=== PATIENT | male | born 1955 | race Caucasian/White ===

== ENCOUNTER → 2020-12-29 11:21 | Outpatient (BNVA) | payer OTHER, SELFPAY | PROVIDERS: PCP Family Medicine; Referring Provider Family Medicine; Visit Provider Physical Therapy Assistant | DX: Z12.11 Encounter for screening for malignant neoplasm of colon (principal); Z80.0 Family history of malignant neoplasm of digestive organs; Z86.010 Personal history of colon polyps ==

== ENCOUNTER 2020-12-30 01:57 | Outpatient (CLI) | payer MEDICARE, OTHER, SELFPAY ==
[2020-12-30 11:33] LABS: Source Nasal/Nares
[2020-12-30 19:12] LABS: COVID-19 PCR Negative (Negative)
== END 2020-12-30 01:58 | disposition home or self-care (01) ==
LOC: LBO 01:57
PROVIDERS: PCP Family Medicine; Visit Provider Surgery
DX: Z20.822 Contact with and (suspected) exposure to COVID-19 (principal)
CPT/HCPCS: 87635

== ENCOUNTER 2021-01-02 08:58 | Day surgery (SDC) | payer MEDICARE, OTHER, SELFPAY ==
[2021-01-02] MEDS: Lactated Ringers 1,000 ML 80 ML IV (09:36)
--- NOTE | 2021-01-02 10:38 | W.ANESPRE ---
General Info Date of Service Date Performed: 01/02/21 Height: 6 ft 2 in Weight: 97.692 kg Body Mass Index (BMI): 27.6 Surgical Procedure: Operation Date: 01/02/21 10:50 Proposed Procedures Side Surgeon p Colonoscopy Franca Wood MD Meds Allergies and Home Medications Allergies Allergy/AdvReac Type Severity Reaction Status Date / Time simvastatin AdvReac Intermediate muscle Unverified 01/02/21 09:12 aches Home Medication Medication Instructions Recorded triamcinolone acetonide 0.1 % 1 applic TOPICAL DAILY 08/26/20 topical cream aspirin 81 mg tablet,delayed 81 mg PO DAILY 12/29/20 release bisacodyl 5 mg tablet,delayed 5 mg PO ONCE #4 tab 12/29/20 release polyethylene glycol 3350 17 238 g PO ONCE #238 g 12/29/20 gram/dose oral powder Current Visit Medications: Current Medications Generic Name Dose Route Start Last Admin Trade Name Freq PRN Reason Stop Dose Admin Hyoscyamine Sulfate 0.125 mg 01/02/21 06:56 Hyoscyamine 0.125 Mg Sl/Oral/Chew SL DIRECTED PRN Ringer's Solution 1,000 mls @ 80 mls/hr 01/02/21 06:00 01/02/21 09:36 IV 01/29/21 23:59 80 mls/hr INFUSION STEVIE Administration IV Miscellaneous Supplies 1 each 01/02/21 06:00 Iv Access IV 01/29/21 23:59 DIRECTED STEVIE Ondansetron HCl 4 mg 01/02/21 06:56 Ondansetron 4 Mg/2 Ml Vial IVP Q4H PRN PRN Nausea / Vomiting Sodium Chloride 0 ml 01/02/21 06:00 Normal Saline Flush 10 Ml Syr IV 01/29/21 23:59 PRN PRN Sodium Chloride 0 ml 01/02/21 06:00 Normal Saline 10 Ml Vial IJ 01/29/21 23:59 DIRECTED PRN Sterile Water 0 ml 01/02/21 06:00 Water,Injection,Sterile 10 Ml Vial IJ 01/29/21 23:59 DIRECTED PRN PFSH Active Problems Active Problems: Problem Status Onset Code Screening for colon cancer Z12.11 Plantar fasciitis M72.2 Phlebitis and thrombophlebitis of lower extremities I80.3 Eczema L30.9 Family history of colon cancer Z80.0 Screening for colon cancer Z12.11 Medical History Medical History (Updated 01/02/21 @ 09:32 by Myla Kumar) Family history of colon cancer in mother Macular degeneration Osteoarthritis of right hip Screening for colon cancer Sensorineural hearing loss Thrombophlebitis Surgical History Surgical History Colonoscopy - MAC (06/10/17) 2009 2016 - 4 polyps TA History of arthroscopic knee surgery History of cataract surgery History of hernia repair Tobacco Smoking/Tobacco Use Status: Never Alcohol Alcohol Intake: current Alcohol intake frequency: a few times a week Alcohol type: beer Substance Use Substance use: Never Substance use type: does not use Vital Signs and Lab Results Vital Signs Most Recent Vital Signs in EMR: Temp Pulse Resp BP Pulse Ox 36.1 C L 67 16 117/79 99 01/02/21 10:40 01/02/21 10:40 01/02/21 10:40 01/02/21 10:40 01/02/21 10:40 Lab Results Blood Type / Crossmatch: No Data to Display Complete Blood Count: No Data to Display Complete Metabolic Panel: No Data to Display Liver Function Panel: No Data to Display Coagulation Panel: No Data to Display Cardiac Panel: No Data to Display Arterial Blood Gas: No Data to Display Venous Blood Gas: No Data to Display Pancreas Panel: No Data to Display Thyroid Panel: No Data to Display Infectious Disease: Coronavirus (COVID-19)(PCR) Negative (Negative) 12/30/20 09:32 12/30/20 Coronavirus 2019 Source Nasal/Nares 12/30/20 09:32 12/30/20 Blood Cultures: No Data to Display Toxicology Panel: No Data to Display Anesthesia Assessment and Plan Anesthesia History Personal History: No History of Anesthesia Complications Family History: No Family History of Anesthesia Complications Exercise Tolerance Exercise Tolerance: Metabolic Equivalents>4 Pertinent Negatives Pertinent Negatives: No Symptoms of GERD, No Major Cardiovascular Symptoms or Complaints and No Major Pulmonary Symptoms or Complaints Cardiac & Pulmonary Exam Cardiac Exam: Normal S1/S2 Heart Sounds Pulmonary Exam: Clear Bilateral Breath Sounds Airway Exam Known Difficult Airway: No Mallampati Class: 2 Mouth Opening: Normal (> 3cm) Thyromental Distance: Greater than 3 cm Neck Range of Motion: Full ROM Neck Circumference: Normal Teeth Condition: Normal Dentition ASA Classification ASA Score: ASA 2 Emergency Case?: No NPO Status NPO Status: NPO Clears >2 hours, Solids >8 hours Anesthesia Plan Resuscitation Status: Full Code Anesthesia Technique: General Anesthesia Airway Planned: Natural Airway Monitors Used: Standard Monitors
[2021-01-02 10:40] VITALS: BP 117/79; PULSE 67; RESP 16; TEMP 36.1; O2SAT 99
[2021-01-02 10:47] VITALS: BMI 27.6
--- NOTE | 2021-01-02 11:15 | BOWEL_PTH ---
PATIENT: Wayne Oquendo LOC: [facility] U#:[id number] AGE/SX: 65/M ROOM: RE01/02/[address]: Franca Wood MD : 1955 BED: DIS: 01/02/2021 SPEC #: [id number] RECD: 01/02/21 12:44 STATUS: SHASTA REFarzad #: [id number] MARTY: 01/02/21 11:[address]: Franca Wood DEPT: Surgical Specimen RECD BY: Zoe Mcneill ENTERED: 01/02/21 12:45 SP TYPE: Bowel OTHR DR: Nesha Lovelace Tissues: 1 - BIOPSY BOWEL 2 - BIOPSY BOWEL 3 - BIOPSY BOWEL Procedures: GROSS AND MICRO LEVEL 4 Comments: [id number]
[2021-01-02 11:37] VITALS: BP 121/82; BP 95/50; PULSE 61; PULSE 65; RESP 16; TEMP 36.6; O2SAT 96; O2SAT 97
--- NOTE | 2021-01-02 11:38 | W.COLOREPORT ---
Date of service: 01/02/21 Time of Service: 11:39 Colonoscopy Report Date of procedure: 01/02/21 Pre-op diagnosis general: Polyps and family history Post-op diagnosis procedure note: other (polyps and family history) Procedure: Colonoscopy with polypectomy Surgeon: Franca Wood Anesthesia Type: General:No Airway (ASA 2/ Enoc Mayes CRNA) Estimated blood loss (mL): 3 Pathology: other (ascending, descending and rectal polyp) Complications: None Disposition: same day Indications: The patient is here for Colonoscopy pre-op. His last screening was in 2018, which was remarkable for tubular adenomatous polyp. He reports a family history of colon cancer in his mother. He has not had any bowel habit changes. -Discussed colonoscopy bowel prep as well as the procedure. Discussed possible complications of the procedure to include bleeding, pain, perforation, missed small lesion/polyp, sore throat, aspiration and adverse reaction to the medications. Questions were answered to patient?s satisfaction. No guarantees were implied or given. Prep: Miralax/Dulcolax Procedure Start Time: 11:05 Procedure End Time: 11:28 Retraction Time: 15 minutes Findings: 3 small polyps Procedure Description: After informed consent was obtained the patient was taken to the procedure room and placed in a left decubitous position. Monitors were applied and a time out was done. The patients name, date of , procedure, allergies to medications and metal in their body was reviewed. The patient was then sedated. Once sedated and comfortable a rectal exam was done. External exam was normal. Internal exam revealed a normal sphincter tone and no palpable masses. The prostate felt smooth and slightly enlarged. The scope was then introduced and retro-flexed. No internal hemorrhoids, polyps or masses were identified on retro-flexion. The scope was then advanced to the cecum without difficulty. The ileocecal vlave and appendiceal orifice were identified. The prep was adequate. The scope was then slowly retracted over 15 minutes back into the rectum. Polyps were removed with cold forceps in the ascending, descending colon and rectum. There was no diverticulosis noted. The scope was removed and the patient was woken up and taken back to Same day surgery in stable condition. The patient tolerated the procedure well and there were no immediate complications. Follow up: The patient should follow up in 5 years unless they develop changes in bowel habits or other new gastrointestinal complaints.
--- NOTE | 2021-01-02 11:42 | W.PM.DSUDISC ---
Discharge Plan Disposition Patient Disposition: HOME Condition: Good Discharge Details Reason For Visit: Colonoscopy Attending Provider: Franca Wood Primary Care Provider: Nesha Lovelace Home Meds and New Rx's Prescriptions: Continued aspirin [Adult Aspirin Regimen] 81 mg tablet,delayed release (DR/EC) 81 mg PO DAILY RF: 0 triamcinolone acetonide 0.1 % cream 1 applic topical DAILY RF: 0 Discontinued bisacodyl [Dulcolax (bisacodyl)] 5 mg tablet,delayed release (DR/EC) 5 mg PO ONCE Qty: 4 RF: 0 polyethylene glycol 3350 17 gram/dose powder 238 g PO ONCE Qty: 238 RF: 0 Discharge Instructions Additional Instructions: Findings: 3 small polyps Follow up: 5 years Please call if you develop: fevers >101.5 Nausea or Vomiting Abdominal pain that is not transient Rectal bleeding that is more then a tbsp A hard abdomen and inability to pass gas DAY SURGERY UNIT POST ENDOSCOPY INSTRUCTIONS Instructions for everyone who is given Anesthesia: For your safety, please do the following for the next 24 Hours: a. Do not drive or operate dangerous equipment b. Do not drink alcohol beverages or use any recreational drugs for the first 24 hours or while taking pain medications. The medications in your body may have a reaction that can be dangerous. c. Do not make any important decisions or sign any important papers 1. Generally there are no restrictions on your activity after a day or so has gone by, but you may feel a bit fatigued for a few days. 2. After you arrive home you may have a light meal and return to a normal diet as you can tolerate it without feeling sick to your stomach. 3. After surgery, you may feel pain or discomfort. This should be only transient, but if it persists please contact your doctor. 4. If there are any questions regarding the findings of your procedure, please feel free to contact your doctor. 6. If you are unable to contact your doctor with a problem, contact the hospital at [phone]. 7. Continue all your regular medications unless directed otherwise. I understand the above instructions and have no questions. Signature of Patient or Responsible Adult Escort Date/Time Name of Responsible Adult Escort Signature of Nurse Date/Time Activity:: Activity as Tolerated Diet:: As Tolerated Discharge Orders Discharge Orders: Discharge Order (Routine); Ordered 01/02/21 Ordered By: Franca Wood
--- NOTE | 2021-01-02 11:57 | W.ANESPOSTOP ---
Postoperative Evaluation Date, Time and Location Date Performed: 01/02/21 Time Performed: 11:57 Patient Location: Day Surgery Unit Vital Signs Most Recent Imported Vital Signs: Most Recent Vital Signs Temp Pulse Resp BP Pulse Ox 36.6 C 65 16 95/50 L 96 01/02/21 11:37 01/02/21 11:37 01/02/21 11:37 01/02/21 11:37 01/02/21 11:37 Pain Score Most Recent Pain Score: Most Recent Pain Score Pain Level 0 01/02/21 11:37 Assessment Mental Status: Awake (Alert & Oriented to Patient Baseline) Airway and Respiratory Function: Patent airway with normal (patient baseline) respiratory exam Cardiovascular Function: Hemodynamically Stable Hydration Status: Adequately Hydrated Nausea & Vomiting: No Nausea or Vomiting Pain: Pt. Denies Any Pain Peripheral Nerve Block: Patient did not receive a nerve block
== END 2021-01-02 12:18 | disposition home or self-care (01) ==
PROVIDERS: PCP Family Medicine; Visit Provider Surgery
PROC: 0DJD8ZZ Inspection of Lower Intestinal Tract, Via Natural or Artificial Opening Endoscopic (ICD-10-PCS; CPT 45378; principal; 2021-01-02 10:45)
DX: Z12.11 Encounter for screening for malignant neoplasm of colon (principal); D12.2 Benign neoplasm of ascending colon; Z80.0 Family history of malignant neoplasm of digestive organs; Z86.010 Personal history of colon polyps; D12.4 Benign neoplasm of descending colon; K62.1 Rectal polyp
CPT/HCPCS: 45380; 88305

== ENCOUNTER → 2023-10-17 13:52 | Outpatient (BNVA) | payer MEDICARE, OTHER, SELFPAY | PROVIDERS: PCP Family Medicine; Referring Provider Family Medicine; Visit Provider Physical Therapy Assistant | DX: Z12.11 Encounter for screening for malignant neoplasm of colon (principal); Z86.010 Personal history of colon polyps; Z80.0 Family history of malignant neoplasm of digestive organs ==

== ENCOUNTER 2023-10-21 10:32 | Day surgery (SDC) | payer MEDICARE, OTHER, SELFPAY ==
--- NOTE | 2023-10-21 10:37 | W.COLOREPORT ---
Date of service: 10/21/23 Time of Service: 10:37 Colonoscopy Report Procedure Description: PROCEDURES PERFORMED: 1. Colonoscopy with cold forceps polypectomy PREOPERATIVE DIAGNOSIS: Surveillance colonoscopy, sessile serrated polyps, family history colon cancer POSTOPERATIVE DIAGNOSIS: Colon polyps, minimal sigmoid diverticulosis, grade 1 internal hemorrhoids SURGEON: Harrison Taylor MD INDICATION for procedure: The patient is a 68-year-old man who has a personal history of advanced colon polyps and has a family history of colon cancer in both of his parents as well as his paternal grandparents. This is a surveillance colonoscopy. The last 1 was 3 years ago. FINDINGS: The terminal ileum was normal. A small 2-3 mm polyp was found and removed in the sigmoid colon with cold forceps technique. No other polyps were noted. Some very mild diverticular changes are present in the sigmoid colon only - no active inflammation or fibrosis. Grade 1 internal hemorrhoids are noted. SURVEILLANCE interval/FOLLOW-UP: Because of the family history, no longer than 5 years. Should be 3 years if the polyp is advanced histology (unlikely). SPECIMENS: yes EBL: Minimal COMPLICATIONS: None QUALITY of prep: Excellent Procedure in detail: The patient gave written consent and was in agreement with the indications, the potential risks as well as the benefits of the procedure. They were taken to the endoscopy suite and laid in the left lateral decubitus position. A timeout was performed and anesthesia was administered which was tolerated well. I started the procedure. Digital rectal and visual examination was performed and grossly within normal limits. A well-lubricated flexible colonoscope was then introduced and passed without any notable difficulty all the way to the cecum identified by the ileocecal valve and the appendiceal orifice. The ileum was briefly intubated and looked normal. The scope was then slowly withdrawn with the above-noted findings. The patient tolerated the procedure well and was taken to the PACU in hemodynamically stable condition.
--- NOTE | 2023-10-21 10:38 | W.PM.DSUDISC ---
Date of service: 10/21/23 Time of Service: 10:38 Discharge Plan Disposition Patient Disposition: Home Condition: Good Discharge Details Attending Provider: Kofi Taylor Primary Care Provider: Nesha Lovelace Home Meds and New Rx's Prescriptions: No Action bisacodyl [Dulcolax (bisacodyl)] 5 mg tablet,delayed release (DR/EC) 5 mg PO ONCE Qty: 4 0RF Rx Instructions: Take per colonoscopy instructions provided by ordering providers office polyethylene glycol 3350 17 gram/dose powder 17 g PO ONCE Qty: 238 0RF Rx Instructions: Take per colonoscopy instructions provided by ordering providers office loratadine [Allergy Relief (loratadine)] 10 mg tablet 10 mg PO DAILY Discharge Instructions Additional Instructions: FINDINGS: A small polyp was found and removed today. This is why we keep doing the colonoscopies. It is nothing to worry about. Because your family history you need to repeat a colonoscopy in 3 to 5 years. We will update you once the polyp pathology results are available. You have very mild hemorrhoid and diverticular disease which are both very common, benign conditions and nothing needs to be done about them. Stand Alone Forms: Anesthesia Discharge Inst., Colonoscopy Post Instructions, Jeannie Escobedo (DSU) Activity:: Activity as Tolerated Diet:: As Tolerated
[2023-10-21] MEDS: Lactated Ringers 1,000 ML 80 ML IV (10:40)
[2023-10-21 10:44] VITALS: BP 146/97; PULSE 59; RESP 16; TEMP 36.2; O2SAT 100
--- NOTE | 2023-10-21 11:05 | ANES.PREOP_ITS ---
General Info Date of Service Date Performed: 10/21/23 Height: 6 ft 2 in Weight: 96.9 kg Body Mass Index (BMI): 27.4 Surgical Procedure: Operation Date: 10/21/23 11:50 Proposed Procedure Side Surgeon p Colonoscopy Kofi Taylor MD Meds Allergies and Home Medications Allergies Allergy/AdvReac Type Severity Reaction Status Date / Time simvastatin AdvReac Intermediate muscle Verified 10/21/23 10:47 aches seasonal allergies Allergy Mild stuffy nose Uncoded 10/21/23 10:47 Home Medication Medication Instructions Recorded bisacodyl 5 mg tablet,delayed 5 mg PO ONCE #4 tabs 10/17/23 release (Dulcolax (bisacodyl)) polyethylene glycol 3350 17 17 g PO ONCE #238 grams 10/17/23 gram/dose oral powder loratadine 10 mg tablet (Allergy 10 mg PO DAILY 10/18/23 Relief (loratadine)) Current Visit Medications: Current Medications Generic Name Dose Route Start Last Admin Trade Name Freq PRN Reason Stop Dose Admin Ringer's Solution 1,000 mls @ 80 mls/hr 10/21/23 06:00 10/21/23 10:40 IV 11/17/23 23:59 80 mls/hr INFUSION STEVIE Administration IV Miscellaneous Supplies 1 each 10/21/23 06:00 Iv Access IV 11/17/23 23:59 DIRECTED STEVIE Sodium Chloride 0 ml 10/21/23 06:00 Normal Saline Flush 10 Ml Syr IV 11/17/23 23:59 PRN PRN Sodium Chloride 0 ml 10/21/23 06:00 Normal Saline 10 Ml Vial IJ 11/17/23 23:59 DIRECTED PRN Sterile Water 0 ml 10/21/23 06:00 Water,Injection,Sterile 10 Ml Vial IJ 11/17/23 23:59 DIRECTED PRN PFSH Active Problems Active Problems: Problem Status Onset Code Tremor R25.1 Tinnitus, bilateral H93.13 Hoarseness R49.0 Tubular adenoma of colon 06/10/17 D12.6 Hyperplastic colon polyp K63.5 Tubular adenoma of colon D12.6 Sessile colonic polyp K63.5 Screening for colon cancer Z12.11 Plantar fasciitis M72.2 Phlebitis and thrombophlebitis of lower extremities I80.3 Eczema L30.9 Family history of colon cancer Z80.0 Screening for colon cancer Z12.11 Medical History Medical History Family history of colon cancer in mother Thrombophlebitis Macular degeneration Sensorineural hearing loss Osteoarthritis of right hip Surgical History Surgical History Sebaceous adenoma Status post lateral meniscus repair of left knee 2003 [facility] History of colonoscopy (~12/2020) History of hernia repair rt inguinal hernia 12/2019, History of cataract surgery History of arthroscopic knee surgery Colonoscopy - MAC (06/10/17) 2008 2015 - polyps TA Tobacco Smoking/Tobacco Use Status: Never Alcohol Alcohol Intake: current Alcohol intake frequency: a few times a week Alcohol type: beer Substance Use Substance use: Never Substance use type: does not use Details: alcohol: t-5 Vital Signs and Lab Results Vital Signs Most Recent Vital Signs in EMR: Most Recent Vital Signs Temp Pulse Resp BP Pulse Ox 36.2 C L 59 L 16 146/97 H 100 10/21/23 10:44 10/21/23 10:44 10/21/23 10:44 10/21/23 10:44 10/21/23 10:44 Lab Results Blood Type / Crossmatch: No Data to Display Complete Blood Count: No Data to Display Complete Metabolic Panel: No Data to Display Liver Function Panel: No Data to Display Coagulation Panel: No Data to Display Cardiac Panel: No Data to Display Arterial Blood Gas: No Data to Display Venous Blood Gas: No Data to Display Pancreas Panel: No Data to Display Thyroid Panel: No Data to Display Infectious Disease: No Data to Display Blood Cultures: No Data to Display Toxicology Panel: No Data to Display Anesthesia Assessment and Plan Anesthesia History Personal History: No History of Anesthesia Complications Family History: No Family History of Anesthesia Complications Exercise Tolerance Exercise Tolerance: Metabolic Equivalents>4 Cardiac & Pulmonary Exam Cardiac Exam: Normal S1/S2 Heart Sounds Pulmonary Exam: Clear Bilateral Breath Sounds Implantable Cardiac Device Does patient have a Pacemaker or an ICD?: No Airway Exam Known Difficult Airway: No Mallampati Class: 2 Mouth Opening: Normal (> 3cm) Thyromental Distance: Greater than 3 cm Neck Range of Motion: Full ROM Neck Circumference: Normal Teeth Condition: Normal Dentition ASA Classification ASA Score: ASA 2 Emergency Case?: No NPO Status NPO Status: NPO Clears >2 hours, Solids >8 hours Anesthesia Plan Resuscitation Status: Full Code Anesthesia Technique: General Anesthesia Airway Planned: Natural Airway Monitors Used: Standard Monitors
[2023-10-21 11:17] VITALS: BMI 27.4
--- NOTE | 2023-10-21 12:00 | BOWEL_PTH ---
PATIENT: Wayne Oquendo LOC: [facility] U#:[id number] AGE/SX: 68/M ROOM: RE10/21/[address]: Kofi Taylor : 1955 BED: DIS: 10/21/2023 SPEC #: [id number] RECD: 10/21/23 12:55 STATUS: SHASTA RE #: [id number] MARTY: 10/21/23 12:[address]: Kofi Taylor DEPT: Surgical Specimen RECD BY: Zoe Mcneill ENTERED: 10/21/23 12:55 SP TYPE: Bowel OTHR DR: Nesha Lovelace Tissues: 1 - BIOPSY BOWEL Procedures: GROSS AND MICRO LEVEL 4 Comments: [id number]
[2023-10-21 12:07] VITALS: BP 112/74; PULSE 54; RESP 16; TEMP 36.4; O2SAT 98
--- NOTE | 2023-10-21 12:33 | W.ANESPOSTOP ---
Postoperative Evaluation Date, Time and Location Date Performed: 10/21/23 Time Performed: 12:24 Patient Location: Day Surgery Unit Vital Signs Most Recent Imported Vital Signs: Most Recent Vital Signs Temp Pulse Resp BP Pulse Ox 36.4 C L 54 L 16 112/74 98 10/21/23 12:07 10/21/23 12:07 10/21/23 12:07 10/21/23 12:07 10/21/23 12:07 Pain Score Most Recent Pain Score: Most Recent Pain Score Pain Level 0 10/21/23 12:07 Assessment Mental Status: Awake (Alert & Oriented to Patient Baseline) Airway and Respiratory Function: Patent airway with normal (patient baseline) respiratory exam Cardiovascular Function: Hemodynamically Stable Hydration Status: Adequately Hydrated Nausea & Vomiting: No Nausea or Vomiting Pain: Pt. Denies Any Pain Peripheral Nerve Block: Patient did not receive a nerve block
[2023-10-21 12:40] VITALS: BP 146/91; PULSE 53; RESP 16; TEMP 36.3; O2SAT 99
== END 2023-10-21 12:50 | disposition home or self-care (01) ==
LOC: SUR 10:33
PROVIDERS: PCP Family Medicine; Visit Provider Student in an Organized Health Care Education/Training Program
PROC: 0DJD8ZZ Inspection of Lower Intestinal Tract, Via Natural or Artificial Opening Endoscopic (ICD-10-PCS; CPT 45378; principal; 2023-10-21 11:45)
DX: Z12.11 Encounter for screening for malignant neoplasm of colon (principal); K63.5 Polyp of colon; K57.30 Diverticulosis of large intestine without perforation or abscess without bleeding; K64.0 First degree hemorrhoids; K62.1 Rectal polyp
CPT/HCPCS: 45380; 00123; 88305; J2704

== ENCOUNTER 2025-04-27 11:00 | Outpatient (RCR) | payer MEDICARE, OTHER, SELFPAY ==
--- NOTE | 2025-04-27 11:00 | RT.EKG_ITS ---
APPROVED REPORT Exam: Resting ECG Reason for Exam: CR Intake Appointment - Baseline EKG Patient Location: O HR:72 bpm ECG Measurements Heart Rate 72 AXIS VA 153 P 48 QRSd 142 QRS -43 QT 448 T 81 QTc 491 Conclusion Sinus rhythm...normal P axis, V-rate 50- 99 RBBB and LAFB...QRSd >120mS, axis(-40,240)
== END 2025-05-05 23:59 | disposition home or self-care (01) ==
LOC: CR 11:00
PROVIDERS: PCP Family Medicine; Visit Provider Internal Medicine Cardiovascular Disease
DX: I25.10 Atherosclerotic heart disease of native coronary artery without angina pectoris (principal); Z95.1 Presence of aortocoronary bypass graft; Z51.89 Encounter for other specified aftercare
CPT/HCPCS: S9472